=== PATIENT | female | born 1990 | race Two or more races ===

== ENCOUNTER → 2024-10-03 | Outpatient (CLI) | payer SELFPAY ==
[2024-10-03 17:48] LABS: Vitamin B12 1112 pg/mL (180-914); Vitamin D,25 Hydroxy 53.7 ng/mL (30-100)
[2024-10-04 05:28] LABS: Hematocrit 42.3 % (37-47); Mean Corp Hgb Conc 33.1 g/dL (32-36); Mean Corpuscular Hgb 31.7 pg (27.0-32.0); Mean Corpuscular Volume 95.7 fL (81-99); Mean Platelet Vol. 11.5 fl (6.2-12.0); Platelet Count 289 K/mm3 (150-450); RBC Distribution Width SD 42.5 fl (35.1-43.9); Red Blood Count 4.42 M/mm3 (4.2-5.4)
[2024-10-06 06:08] LABS: G6PD Quant Test 274 (127-427); Red Blood Cell Count Test/G6PD 4.56 x10E6/uL (3.77-5.28)
== END | disposition home or self-care (01) ==
LOC: LABSPEC 15:27
PROVIDERS: Referring Provider Nurse Practitioner Family; Visit Provider Nurse Practitioner Family
DX: A69.20 Lyme disease, unspecified (principal); F31.89 Other bipolar disorder; R53.82 Chronic fatigue, unspecified; G89.29 Other chronic pain
CPT/HCPCS: 82306; 82607; 82746; 82955; 85027